=== PATIENT | male | born 1980 | race Caucasian/White ===

== ENCOUNTER 2023-06-02 14:16 | Emergency (ER) | payer OTHER, MEDICAID, SELFPAY ==
[2023-06-02 14:19] VITALS: BP 109/61; PULSE 89; RESP 20; TEMP 37.1; O2SAT 98; BMI 26.4
--- NOTE | 2023-06-02 15:01 | ED_ITS ---
HPI - Extremity Problem <Ирина Quan PA-C - Last Filed: 06/02/23 16:02> General Chief complaint: Extremity Problem,Nontraumatic Stated complaint: feels like blood is seeping through shoes Time Seen by Provider: 06/02/23 14:31 History of Present Illness HPI Narrative: 43-year-old male with no fixed address presents today for evaluation of feet discomfort for a few days. He denies any specific injury, just that it feels but his shoes are breaking down from the inside out and the bottoms of his feet are irritated. He denies constitutional symptoms such as fever chest pain shortness of breath, no diabetes. He slept outside last night and is not sure where he will sleep tonight. Related Data Previous Rx's Medication Instructions Recorded ibuprofen 400 mg tablet 400 mg PO Q8H PRN pain #30 tabs 06/02/23 Patient History <Ирина Quan PA-C - Last Filed: 06/02/23 16:02> Social History Smoking Status: Current every day smoker Smoking Status: Current every day smoker alcohol intake frequency: 3 or more drinks per day Substance Use Type: crack/cocaine and methamphetamine Exam <Ирина Quan PA-C - Last Filed: 06/02/23 16:02> Narrative Exam Narrative: GEN: Well appearing, well nourished, alert and oriented, no acute distress. Walking around the room without difficulty. EYES: Left eye absent. Right eye pupil equal, round, and reactive to light and accommodation. Extraoccular muscles are intact. There is no subconjunctival hemorrhage or exudate. EXT: Full painless ROM of all extremities with no loss of sensation or strength. SKIN: Feet warm, pink, and dry. No erythema or rash. Pedal pulses 2+. No evidence of skin breakdown. Nails are intact and well kept. Some mild tenderness to palpation across the plantar proximal phalanges. No swelling or erythema of the toes. Initial Vital Signs Initial Vital Signs: Vital Signs Temperature 98.7 F 06/02/23 14:19 Pulse Rate 89 06/02/23 14:19 Respiratory Rate 20 06/02/23 14:19 Blood Pressure 109/61 06/02/23 14:19 Pulse Oximetry 98 06/02/23 14:19 Oxygen Delivery Method Room Air 06/02/23 14:19 <Ainsley Pathak MD - Last Filed: 06/02/23 16:12> Initial Vital Signs Initial Vital Signs: Vital Signs Temperature 98.7 F 06/02/23 14:19 Pulse Rate 89 06/02/23 14:19 Respiratory Rate 20 06/02/23 14:19 Blood Pressure 109/61 06/02/23 14:19 Pulse Oximetry 98 06/02/23 14:19 Oxygen Delivery Method Room Air 06/02/23 14:19 Course <Ирина Quan PA-C - Last Filed: 06/02/23 16:02> Consultations Consultation #1: Patient seen by social work for references to community resources. Vital Signs Vital signs: Vital Signs - 8 hr 06/02/23 14:19 Temperature 98.7 F Pulse Rate 89 Respiratory Rate 20 Blood Pressure 109/61 Pulse Oximetry 98 Oxygen Delivery Method Room Air <Ainsley Pathak MD - Last Filed: 06/02/23 16:12> Vital Signs Vital signs: Vital Signs - 8 hr 06/02/23 14:19 Temperature 98.7 F Pulse Rate 89 Respiratory Rate 20 Blood Pressure 109/61 Pulse Oximetry 98 Oxygen Delivery Method Room Air MDM - Extremity (Nontraumatic) <Ирина Quan PA-C - Last Filed: 06/02/23 16:02> MDM Narrative Medical decision making narrative: MDM * differential diagnosis includes but not limited to foot strain, chronic foot pain secondary to homelessness. * Prior records reviewed: No prior records here * My lab interpretation: * My imgaing interpretation: No clinical indication for imaging. * Clinical Decision Rules/Scores evaluated: * Independent discussions with: ED Course: When I reassured the patient that his exam was normal he asked if I might prescribe him a narcotic medication. I said no but I was happy to prescribe him ibuprofen at 400 mg. Advised to take that 2 to 3 times a day as needed for discomfort. Shared Decision Making: He indicated understanding of the plan. I also had social work see him for discussion of local resources. Social Considerations: Homeless without concerning underlying conditions, and relatively good hygiene. Disposition: Discharged Discharge Plan Departure Patient Disposition: Home Clinical Impression: Foot pain, right, Homelessness unspecified Clinical Impression: (Ruled Out): Chronic foot pain Activity Restrictions/Additional Instructions: The exam of your feet today is normal. Your skin looks great with no evidence of abrasions or any skin breakdown. Continue your foot hygiene as it looks like you are doing a great job. I am ordering a prescription of ibuprofen which she can picker and packer here at the hospital. Take that 2 to 3 times a day as needed for pain with food on your stomach if you can. Please seek a primary care provider in the community using the materials we have given you today from social work. It was a pleasure to take care of you today. Prescriptions: New ibuprofen 400 mg tablet 400 mg PO Q8H PRN (Reason: pain) Qty: 30 0RF Referrals: Miscellaneous,Doctor, [Primary Care Provider] - Stand Alone Forms: Patient Portal/API ED Sign-out <Ainsley Pathak MD - Last Filed: 06/02/23 16:12> Cosign ED Attending Cosignature Attestation: I did not see this patient. I was available all times for consultation.
== END 2023-06-02 15:37 | disposition home or self-care (01) ==
PROVIDERS: Emergency Provider Physician Assistant
DX: M79.671 Pain in right foot (principal); Z59.00 Homelessness unspecified
CPT/HCPCS: 99281; 99282

== ENCOUNTER 2023-06-03 22:00 | Emergency (ER) | payer OTHER, MEDICAID, SELFPAY ==
[2023-06-03 22:03] VITALS: BP 135/92; PULSE 77; RESP 18; TEMP 36.8; O2SAT 96; BMI 25.0
--- NOTE | 2023-06-04 03:58 | ED.GENADULT ---
HPI - General Adult General Chief complaint: Upper Respiratory Symptoms Stated complaint: something in throat and chest T-0 Time Seen by Provider: 06/04/23 03:41 Source: patient Mode of arrival: Ambulatory History of Present Illness HPI narrative: 43-year-old gentleman with housing instability and currently on housed presents complaining of a sore throat and slight cough that developed this afternoon. He complains that it has been difficult to sleep. He was able to sleep for approximately 4 hours in the waiting room of the emergency department. He denies fevers or chills. He states that he smokes tobacco but denies any other recreational drug use. No nausea vomiting or diarrhea. No chest pain or palpitations. Related Data Previous Rx's Medication Instructions Recorded ibuprofen 400 mg tablet 400 mg PO Q8H PRN pain #30 tabs 06/02/23 Allergies Allergy/AdvReac Type Severity Reaction Status Date / Time No Known Drug Allergies Allergy Verified 06/03/23 22:03 Review of Systems Review of Systems Narrative: Pertinent positive and negative findings as per HPI Patient History Social History Smoking Status: Current every day smoker Smoking Status: Current every day smoker tobacco type: cigarettes and vaping alcohol intake frequency: 3 or more drinks per day Substance Use Type: crack/cocaine and methamphetamine Exam Initial Vital Signs Initial Vital Signs: Vital Signs Temperature 98.2 F 06/03/23 22:03 Pulse Rate 77 06/03/23 22:03 Respiratory Rate 18 06/03/23 22:03 Blood Pressure 135/92 H 06/03/23 22:03 Pulse Oximetry 96 06/03/23 22:03 Oxygen Delivery Method Room Air 06/03/23 22:03 General: Sleepy but appropriate and in no acute distress HEENT: Mild pharyngeal erythema without exudate. Mild anterior cervical adenopathy. Respiratory: Able to speak in full sentences, no wheezing or rhonchi. No obvious respiratory distress Cardiac: Regular rate and rhythm Skin: No obvious rashes, warm and dry Neurologic: Grossly intact no obvious asymmetries or abnormalities Psych: appropriate insight and affect, cooperative Course Orders Ordered: ED Orders 06/03/23 22:08 Consult to STATIONARY ENGINEER APPRENTICE - [employer] Stat Vital Signs Vital signs: Vital Signs - 8 hr 06/03/23 22:03 Temperature 98.2 F Pulse Rate 77 Respiratory Rate 18 Blood Pressure 135/92 H Pulse Oximetry 96 Oxygen Delivery Method Room Air Medical Decision Making MDM Narrative Medical decision making narrative: CC: Sore throat, slight cough developing over less than 24 hours Complicating co-morbidities: Currently homeless Data collected from: patient, Social determinants of health that may influence the patients condition: Patient was seen by delinquency prevention social worker after visit in the emergency department on June 02 with resources offered at that time. It is unclear if he followed up with any of that. He was given a prescription for ibuprofen and he states that that was not filled Medical records reviewed: ER note from June 02 is reviewed Differential considered: Strep throat, viral syndrome, seasonal allergies, peritonsillar abscess Exam documented above, pertinent findings include: Patient is actually well groomed but layered in multiple clothing carrying his sleeping bag and a suitcase. Mild pharyngeal erythema mild cervical adenopathy. Remainder of exam is benign Treatments: Oral ibuprofen Discussion: 43-year-old gentleman who likely is developing mild upper respiratory infection. There is no obvious respiratory distress and no indication for additional blood work, imaging or viral testing. He is offered some ibuprofen. He was allowed to sleep in the waiting room for an extended period of time. At this point there is no reason for him to be admitted to the hospital and he will be discharged home. Discussed signs and symptoms of upper respiratory infections anticipated course of recovery questions are answered. Additional Information: Apprpriate Treatment for Patients with URI [x] The patient was diagnosed with upper respiratory infection and was not prescribed or dispensed an antibiotic. [[employer]] Discharge Plan Departure Patient Disposition: Home Clinical Impression: Upper respiratory infection Qualifiers: URI type: unspecified viral URI Qualified Code(s): J06.9 - Acute upper respiratory infection, unspecified Instructions: DI for Viral Upper Respiratory Infection -- Adult Activity Restrictions/Additional Instructions: Thank you for coming in tonight It does look like you are coming down with a cold, your symptoms are very consistent with a virus causing your mild cough and sore throat. I have given you some ibuprofen in the emergency department to help with the sore throat. You were given a prescription for ibuprofen that you can use for the foot pain for which it was prescribed as well as the aches and pains from this current virus. If you find that you are more short of breath or develop new findings you can return to the emergency department. Prescriptions: No Action ibuprofen 400 mg tablet 400 mg PO Q8H PRN (Reason: pain) Qty: 30 0RF Referrals: Miscellaneous,Doctor, MD [Primary Care Provider] - Stand Alone Forms: Patient Portal/API
[2023-06-04] MEDS: IBUPROFEN 400 MG TABLET PO (04:10)
[2023-06-04 04:39] VITALS: BP 134/79; PULSE 82; RESP 18; TEMP 36.8; O2SAT 97
== END 2023-06-04 04:40 | disposition home or self-care (01) ==
PROVIDERS: Emergency Provider Emergency Medicine
DX: J06.9 Acute upper respiratory infection, unspecified (principal)
CPT/HCPCS: 99282; 99283

== ENCOUNTER 2023-06-04 13:28 | Emergency (ER) | payer OTHER, MEDICAID, SELFPAY | END 2023-06-04 13:46 | disposition left against medical advice (07) | PROVIDERS: Emergency Provider Emergency Medicine ==

== ENCOUNTER 2023-06-05 02:23 | Emergency (ER) | payer OTHER, MEDICAID, SELFPAY ==
--- NOTE | 2023-06-05 02:26 | ED_ITS ---
HPI - Chest Pain General Chief Complaint: Chest Pain Stated Complaint: chest pain Time Seen by Provider: 06/05/23 02:26 History of Present Illness HPI narrative: The patient is a 43-year-old man complaining of anterior chest pain. Primarily left upper chest that hurts worse when he coughs or takes a deep breath or moves. He is not feeling short of breath. He is had this pain for over 24 hours. This is his 3rd visit in 3 days, initially seen on the for foot pain, seen yesterday for URI symptoms. He is a smoker, has no family history of coronary artery disease does not have a history of hypertension diabetes or elevated cholesterol. He is taken ibuprofen for this recently but more than 8 hours ago. His pain is not exacerbated by exertion. He is homeless and requesting to take a shower here. Related Data Previous Rx's Medication Instructions Recorded ibuprofen 400 mg tablet 400 mg PO Q8H PRN pain #30 tabs 06/02/23 Allergies Allergy/AdvReac Type Severity Reaction Status Date / Time No Known Drug Allergies Allergy Verified 06/03/23 22:03 Patient History Social History Smoking Status: Current every day smoker Smoking Status: Current every day smoker tobacco type: cigarettes and vaping alcohol intake frequency: 3 or more drinks per day Substance Use Type: crack/cocaine and methamphetamine Exam Initial Vital Signs Initial Vital Signs: Vital Signs Temperature 98.5 F 06/05/23 02:35 Pulse Rate 83 06/05/23 02:35 Respiratory Rate 17 06/05/23 02:35 Blood Pressure 138/85 06/05/23 02:35 Pulse Oximetry 98 06/05/23 02:35 Oxygen Delivery Method Room Air 06/05/23 02:35 [facility] Head: normocephalic and other (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) Chest Chest: normal inspection of the chest and normal palpation of entire chest wall (Pressure on the anterior chest wall reproduces his chest pain) Resp Effort & Inspection: normal respiratory effort, able to speak in complete sentences, no audible wheezes, cough, not labored, no respiratory distress, no stridor and not tachypneic Cardio Rate: regular rate Rhythm: regular rhythm Heart Sounds: S1 normal and S2 normal Skin General: warm Neuro General: patient alert, patient awake, patient oriented x3 and gait normal Psych Mental Status: mental status grossly normal Course Orders Ordered: ED Orders 06/05/23 02:41 XR chest 2V Stat Discontinued Medications Ibuprofen (Ibuprofen 400 Mg Tablet) 400 mg PO NOW ONE Stop: 06/05/23 02:42 Last Admin: 06/05/23 02:53 Dose: 400 mg Vital Signs Vital signs: Vital Signs - 8 hr 06/05/23 02:35 06/05/23 03:16 Temperature 98.5 F Pulse Rate 83 79 Respiratory Rate 17 18 Blood Pressure 138/85 130/81 Pulse Oximetry 98 97 Oxygen Delivery Method Room Air Room Air MDM - Chest Pain Imaging Data Chest x-ray: My Impression: Independently reviewed two-view chest, no acute finding Radiologist's Impression: Negative chest ECG Data Interpretation: EKG shows normal sinus rhythm at 84 intervals are normal axis is normal no acute ST segment changes no evidence of previous infarction Treatment and disposition Social Determinants of Health that impact treatment or disposition: Patient is homeless MDM Narrative Medical decision making narrative: 43-year-old man presently on domicile presenting with pain that clearly seems to be chest wall in nature. No ischemic changes on EKG, no infiltrate on chest x- ray he is not hypoxic he is not in respiratory distress. Clearly seemed to be secondary component to his presentation relating to his homelessness. I gave him ibuprofen for his chest wall pain. Reviewed old records note that he was just here yesterday with the URI. Discharged to previous living situation Discharge Plan Departure Patient Disposition: Home Clinical Impression: Acute chest wall pain Activity Restrictions/Additional Instructions: Emergency department evaluation tonight does not show any serious problem req uiring hospitalization or further emergency workup. I think it is safe to go home, you can use previously prescribed ibuprofen as needed for pain, you can also use Tylenol (acetaminophen) return to the emergency department for increasing chest pain shortness of breath or other acute symptoms. Prescriptions: No Action ibuprofen 400 mg tablet 400 mg PO Q8H PRN (Reason: pain) Qty: 30 0RF Referrals: Miscellaneous,Doctor, [Primary Care Provider] - Stand Alone Forms: Patient Portal/API
[2023-06-05 02:35] VITALS: BP 138/85; PULSE 83; RESP 17; TEMP 36.9; O2SAT 98; BMI 28.8
--- NOTE | 2023-06-05 02:41 | DI.RAD.S_ITS ---
PROCEDURE: XR CHEST 2V INDICATIONS: chest pain TECHNIQUE: 2 views of the chest were acquired. COMPARISON: None. FINDINGS: Surgical changes and devices: None. Lungs and pleura: Lungs are clear. No pleural effusions or pneumothorax. Mediastinum: Mediastinal contours are normal. Heart size is normal. Bones and chest wall: No suspicious bony abnormalities. Soft tissues appear unremarkable. IMPRESSION: No acute cardiopulmonary abnormality is seen. Dictated by: Jayjay Gutiérrez M.D. on 06/05/2023 at 8:34 Approved by: Jayjay Gutiérrez M.D. on 06/05/2023 at 8:38
--- NOTE | 2023-06-05 02:45 | PC.NURSE ---
Patient c/o of chest pain and wanting a shower. Patient states he woke up from a dream and had chest pain. Patient asks what are the chances I can get a shower. Patient explained the concern for a potential emergency and a provider will be in to assess and evaluate. Patient states I had a dream, and generalized chest pain and cough. Patient seen yesterday for cough and sore throat.
[2023-06-05] MEDS: IBUPROFEN 400 MG TABLET PO (02:53)
[2023-06-05 03:16] VITALS: BP 130/81; PULSE 79; RESP 18; O2SAT 97
== END 2023-06-05 03:16 | disposition home or self-care (01) ==
PROVIDERS: Emergency Provider Emergency Medicine
DX: R07.89 Other chest pain (principal)
CPT/HCPCS: 71046; 93005; 93010; 99283